=== PATIENT | male | born 1990 | race Caucasian/White ===

== ENCOUNTER 2024-07-19 20:58 | Emergency (ER) | payer OTHER ==
[~2024-07-19] VITALS: Ht 175.3 cm; Wt 86.5 kg
[2024-07-19 20:59] VITALS: TEMP 98.4
[2024-07-19] MEDS: LIDOCAINE 2% MDV 20ML VIAL SC ONE (23:24)
[2024-07-20 00:34] VITALS: BP 133/92; O2SAT 97
== END 2024-07-20 00:36 | disposition home or self-care (01) ==
LOC: M ED 20:58
DX: S61.411A Laceration without foreign body of right hand, initial encounter (principal); X58.XXXA Exposure to other specified factors, initial encounter; Y92.9 Unspecified place or not applicable; Y93.89 Activity, other specified; Y99.1 Military activity